=== PATIENT | female | born 1965 | race African-American/Black ===

== ENCOUNTER 2024-08-16 14:57 | Emergency (ER) | payer BC, SELFPAY ==
[2024-08-16] MEDS ORDERED: Dexamethasone 10 MG/ML VIAL ONE (15:57)
== END 2024-08-16 16:11 | disposition home or self-care (01) ==
LOC: CSHERS 14:57
DX: M54.41 Lumbago with sciatica, right side (principal); X50.0XXA Overexertion from strenuous movement or load, initial encounter; Y93.F2 Activity, caregiving, lifting
CPT/HCPCS: 96372; 99283; J1100